=== PATIENT | female | born 1985 | race Caucasian/White ===

== ENCOUNTER 2024-01-16 09:05 | Outpatient (REF) | payer OTHER, SELFPAY ==
--- NOTE | ~2024-01-16 | US_ITS ---
EXAM: Pelvic Ultrasound CLINICAL INDICATION: Severe dysmenorrhea. Concern for PCOS. COMPARISON: None available TECHNIQUE: The pelvis was evaluated using transabdominal and transvaginal imaging. FINDINGS: The uterus measures 8.1 x 3.0 x 4.0 cm in longitudinal by AP by transverse dimension. The endometrial stripe is not thickened and measures 0.7 cm. The left ovary measures approximately 3.5 x 1.7 x 2.9 cm. The right ovary measures approximately 2.9 x 2.8 x 2.2 cm. There are several peripherally oriented follicles within each ovary. There are no abnormal adnexal masses. There is no free fluid in the pelvis. US/US pelvic and transvaginal IMPRESSION: 1. Normal thickness endometrial stripe. 2. Several peripherally oriented follicles are present within each ovary. This is a nonspecific finding but may be consistent with polycystic ovarian syndrome.
== END 2024-01-16 09:06 | disposition home or self-care (01) ==
LOC: HO.UMASIMG 09:05
PROVIDERS: Visit Provider Pediatrics
DX: N92.6 Irregular menstruation, unspecified (principal); J45.909 Unspecified asthma, uncomplicated
CPT/HCPCS: 76830; 76856